=== PATIENT | female | born 1995 | race Caucasian/White ===

== ENCOUNTER 2019-04-16 21:01 | Emergency (ER) | payer OTHER, MEDICAID, SELFPAY ==
[2019-04-16 21:05] VITALS: BP 134/92; PULSE 83; RESP 20; TEMP 36.9; O2SAT 100
--- NOTE | 2019-04-16 21:24 | DI.RAD.S_ITS ---
PROCEDURE: XR CHEST 1V INDICATIONS: chest pain TECHNIQUE: One view of the chest was acquired. COMPARISON: None. FINDINGS: Surgical changes and devices: None. Lungs and pleura: Lungs are clear. No pleural effusions or pneumothorax. Mediastinum: Mediastinal contours appear normal. Heart size is normal. Bones and chest wall: No suspicious bony lesions. Overlying soft tissues appear unremarkable. IMPRESSION: No acute disease.There are no imaging findings to explain patient's chest pain. Dictated by: Trevon Quintana M.D. on 04/16/2019 at 22:09 Approved by: Trevon Quintana M.D. on 04/16/2019 at 22:09
[2019-04-16 21:49] LABS: Add Manual Diff / Slide Review NO; Basophils Absolute Auto 0 /uL (0-100); Basophils Percent Auto 0.4 % (0-2); Eosinophils Absolute Auto 100 /uL (0-450); Eosinophils Percent Auto 2.3 % (2-4); Hematocrit 38.8 % (36-46); Hemoglobin 13.1 g/dL (12.0-16.0); INR 1.1 (0.9-1.3); Lymphocytes Absolute Auto 2400 /uL (1100-4500); Lymphocytes Percent Auto 39.7 % (25-40); Mean Corpuscular HGB Conc 33.7 % (30-36); Mean Corpuscular Hemoglobin 29.1 PG (26-34); Mean Corpuscular Volume 86.3 fL (80-100); Monocytes Absolute Auto 500 /uL (0-900); Monocytes Percent Auto 8.3 % (3-14); Neutrophils Absolute Auto 3000 /uL (1500-7000); Neutrophils Percent Auto 49.3 % (50-75); Platelet Count 199 X10^3/uL (150-400); Prothrombin Time 12.7 SECONDS (10.1-12.7); Red Cell Distribution Width 12.9 % (11.6-14.8)
[2019-04-16 21:52] LABS: PTT Partial Thromboplastin Tim 31 SECONDS (26.4-36.2)
[2019-04-16 21:54] LABS: Alanine Aminotransferase 19 IU/L (9-52); Albumin 4.3 g/dL (3.5-5.0); Albumin Globulin Ratio 1.3 (1.0-2.8); Alkaline Phosphatase 54 U/L (38-126); Aspartate Aminotransferase 26 IU/L (14-36); Bilirubin Total 0.5 mg/dL (0.2-1.3); Blood Urea Nitrogen 14 mg/dL (7-17); Calcium 9.4 mg/dL (8.4-10.2); Carbon Dioxide 25 mmol/L (22-32); Chloride 103 mmol/L (98-107); Creatine Kinase 142 U/L (30-135); Estimated Glomerular Filt Rate > 60.0 mL/min (>60); Globulin 3.2 g/dL (1.7-4.1); Glucose 90 mg/dL (70-100); HEMOLYSIS < 15 (0-50); Lipase 56 U/L (23-300); Potassium 3.3 mmol/L (3.4-5.1); Sodium 138 mmol/L (137-145); Total Protein 7.5 g/dL (6.3-8.2)
[2019-04-16 22:05] LABS: Troponin I < 0.012 ng/mL (0.01-0.034)
[2019-04-16 22:09] LABS: CKMB % Relative Index 0.8 % (1.5-5.0); Creatine Kinase MB 1.08 ng/mL (<2.37)
[2019-04-16 22:30] VITALS: BP 114/73; PULSE 78; RESP 17; O2SAT 98
--- NOTE | 2019-04-16 22:33 | ED.CHESTPAIN ---
HPI - Chest Pain General Chief Complaint: Chest Pain Stated Complaint: LT SHOULDER PAIN, EAR AND NECK PAIN Time Seen by Provider: 04/16/19 22:19 Source: patient Mode of arrival: ambulatory Limitations: no limitations History of Present Illness HPI narrative: 23-year-old female here for evaluation of left-sided ear pain that radiates down the left side of her jaw on the left side of her chest. She states this started with ear pain a couple days ago and has worsened since then. No fevers. Has not tried anything for symptoms prior to arrival. Related Data Allergies Allergy/AdvReac Type Severity Reaction Status Date / Time shellfish derived Allergy Unknown Unverified 12/18/17 12:49 [SHELLFISH DERIVED] Review of Systems Constitutional Denies fever(s) ENT Comments: Left-sided ear pain Cardiovascular Reports chest pain and Denies dyspnea Respiratory Denies dyspnea Gastrointestinal Gastrointestinal: Denies abdominal pain and Denies nausea Integumentary/Breasts Denies rash Neurologic Denies behavioral changes Psychiatric Denies behavioral changes Hematologic/Lymphatic Denies easy bleeding and Denies easy bruising [facility] Medical History Anemia (Resolved 2007) Surgical History (Updated 02/13/18 @ 14:14 by Cindy Canales) No history of previous surgery (Resolved 08/2017) Family History (Updated 08/27/17 @ 00:00 by Conversion Provider) Father Age: 62 Stroke Sister No problems noted. Sister No problems noted. Mother No problems noted. Social History Smoking Status: Never smoker Family History (Updated 08/27/17 @ 00:00 by Conversion Provider) Father Age: 62 Stroke Sister No problems noted. Sister No problems noted. Mother No problems noted. Social History Smoking Status: Never smoker Exam Initial Vital Signs Initial Vital Signs: Vital Signs Temperature 98.4 F 04/16/19 21:05 Pulse Rate 83 04/16/19 21:05 Respiratory Rate 20 04/16/19 21:05 Blood Pressure 134/92 H 04/16/19 21:05 Pulse Oximetry 100 04/16/19 21:05 Const General: cooperative, healthy appearing, comfortable, well developed, well groomed and No acute distress Orientation: alert, awake and oriented x3 HENMT Head: normal to inspection and normocephalic Ears: TM's normal bilaterally Nose: external nose normal Face and sinus: normal facial exam Mouth: oral mucosae normal Teeth and gingiva: dentition normal Neck Lymphatic: lymphadenopathy (Left anterior cervical) Resp Effort & Inspection: normal respiratory effort Auscultation: clear to auscultation bilaterally Cardio Rate: regular rate Rhythm: regular rhythm Pulses: radial pulses present GI Inspection: non-distended Palpation: soft and No firm Skin Lesions: no lesions Rashes: no rashes Neuro General: alert and awake Cognition: normal cognition Speech: speech normal Motor: muscle tone normal throughout Extrem General: normal to inspection and capillary refill normal Psych Appearance: grossly normal and well kempt Scores GCS Margaret coma scale eye opening: Spontaneous [place] coma scale verbal response: Orientated Margaret coma scale motor response: Obey commands Margaret coma scale total score: 15 HEART Score Heart Score history: Slightly Suspicious Heart Score EKG: Normal Heart Score Age: < 45 years old Heart Score risk factors: No known risk factors Heart Score troponin: < or = to normal limit Heart Score Total: 0 Course Orders Ordered: ED Orders 04/16/19 20:35 Complete Blood Count AUTO DIFF Stat Comprehensive Metabolic Panel Stat Lipase Stat Partial Thromboplastin Time Stat Prothrombin Time INR Stat Troponin & CK Cardiac Panel Stat 04/16/19 21:24 XR chest 1V Stat EKG-12 Lead Stat Vital Signs - 8 hr 04/16/19 21:05 04/16/19 22:30 04/16/19 22:46 Temperature 98.4 F 98.6 F Pulse Rate 83 78 81 Respiratory Rate 20 17 15 Blood Pressure 134/92 H 101/65 Blood Pressure [Left Arm] 114/73 Pulse Oximetry 100 98 98 MDM - Chest Pain Lab Data Attestation: I reviewed the patient's lab results. Result diagrams: 04/16/19 20:35 04/16/19 20:35 Lab Results 04/16/19 04/16/19 04/16/19 Range/Units 20:35 20:35 20:35 WBC 6.0 (4.5-11.0) X10^3/uL RBC 4.50 (4.0-5.2) X10^6/uL Hgb 13.1 (12.0-16.0) g/dL Hct 38.8 (36-46) % MCV 86.3 (80-100) fL MCH 29.1 (26-34) PG MCHC 33.7 (30-36) % RDW 12.9 (11.6-14.8) % Plt Count 199 (150-400) X10^3/uL Neut % (Auto) 49.3 L (50-75) % Lymph % (Auto) 39.7 (25-40) % [place] % (Auto) 8.3 (3-14) % Eos % (Auto) 2.3 (2-4) % Baso % (Auto) 0.4 (0-2) % Neut # (Auto) 3000 (7273-2796) /uL Lymph # (Auto) 2400 (0007-5244) /uL [place] # (Auto) 500 (0-900) /uL Eos # (Auto) 100 (0-450) /uL Baso # (Auto) 0 (0-100) /uL PT 12.7 (10.1-12.7) SECONDS INR 1.1 (0.9-1.3) APTT 31 (26.4-36.2) SECONDS Sodium 138 (137-145) mmol/L Potassium 3.3 L (3.4-5.1) mmol/L Chloride 103 (98-107) mmol/L Carbon Dioxide 25 (22-32) mmol/L BUN 14 (7-17) mg/dL Creatinine 0.70 (0.52-1.04) mg/dL Estimated GFR > 60.0 (>60) mL/min BUN/Creatinine Ratio 20.0 (6-22) Glucose 90 (70-100) mg/dL Calcium 9.4 (8.4-10.2) mg/dL Total Bilirubin 0.5 (0.2-1.3) mg/dL AST 26 (14-36) IU/L ALT 19 (9-52) IU/L Alkaline Phosphatase 54 (38-126) U/L Total Creatine Kinase 142 H (30-135) U/L CK-MB (CK-2) 1.08 (<2.37) ng/mL CK-MB (CK-2) Rel Index 0.8 L (1.5-5.0) % Troponin I < 0.012 (0.01-0.034) ng/mL Total Protein 7.5 (6.3-8.2) g/dL Albumin 4.3 (3.5-5.0) g/dL Globulin 3.2 (1.7-4.1) g/dL Albumin/Globulin Ratio 1.3 (1.0-2.8) Lipase 56 (23-300) U/L Imaging Data Chest x-ray: Radiologist's impression: [address] [address] XRay Report Signed Patient: Monique Corcoran CMR#: [id number] : 1995Acct:[id number] Age/Sex: 23 / FDate of Service: 04/16/19 Loc: ED Accession Number: [id number] Procedure: XR chest 1V Ordering Provider: Earl Chaney D.O. PROCEDURE: XR CHEST 1V INDICATIONS: chest pain TECHNIQUE: One view of the chest was acquired. COMPARISON: None. FINDINGS: Surgical changes and devices: None. Lungs and pleura: Lungs are clear. No pleural effusions or pneumothorax. Mediastinum: Mediastinal contours appear normal. Heart size is normal. Bones and chest wall: No suspicious bony lesions. Overlying soft tissues appear unremarkable. IMPRESSION: No acute disease.There are no imaging findings to explain patient's chest pain. Dictated by: Trevon Quintana M.D. on 04/16/2019 at 22:09 Approved by: Trevon Quintana M.D. on 04/16/2019 at 22:09 ECG Data Attestation: I personally reviewed and interpreted this ECG as follows: Prior ECG tracings: not available for review Interpretation: Sinus rhythm Ventricular rate 86 Normal axis Normal QRS Normal QTC No ST T wave changes MDM Narrative Medical decision making narrative: Chest x-ray is negative come EKG is unremarkable. Patient is low risk for ACS. She does have left-sided cervical lymphadenopathy. Given the fact that her symptoms started with her left ear she had left-sided facial pain and do suspect this is a reactive lymphadenopathy most likely from a viral etiology. No signs of cellulitis. No indication for antibiotics. We did discuss symptom treatment. Will hold on any more cardiac workup for now. Patient was given return precautions. She expressed understanding and agreement with plan. Discharge Plan Departure Patient Disposition: Home Clinical Impression: Lymphadenopathy, cervical Upper respiratory infection Qualifiers: URI type: unspecified URI Qualified Code(s): J06.9 - Acute upper respiratory infection, unspecified Discharge Date/Time: 04/16/19 22:46 Interventions: ED Discharge Assessment Last Done: 04/16/19 22:46 Instructions: DI for Lymphadenopathy Activity Restrictions/Additional Instructions: Recommend that you take Tylenol and/or ibuprofen for any discomfort or fevers or body aches. Also recommend that you take either Claritin or Estrellita or Zyrtec and either Nasonex for Flonase like we discussed. Contact your primary provider for a follow-up. Return to the emergency department for any new or worsening symptoms
[2019-04-16 22:46] VITALS: BP 101/65; PULSE 81; RESP 15; TEMP 37; O2SAT 98
== END 2019-04-16 22:46 | disposition home or self-care (01) ==
PROVIDERS: Emergency Provider Emergency Medicine
DX: R59.0 Localized enlarged lymph nodes (principal); J06.9 Acute upper respiratory infection, unspecified; R07.9 Chest pain, unspecified
CPT/HCPCS: 71045; 80053; 82550; 82553; 83690; 84484; 85025; 85610; 85730; 93005; 93010; 99282; 99285